=== PATIENT | female | born 1965 | race Caucasian/White ===

== ENCOUNTER 2017-06-22 06:28 | Day surgery (SDC) | payer BC, MEDICAID ==
[~2017-06-22 06:28] MED LIST: Lactated Ringers 1,000 ML IV SCH
[2017-06-22] MEDS ORDERED: fentaNYL 100 MCG/2 ML SDV ONE (07:48)
[2017-06-22] MEDS ORDERED: Propofol 200 MG/20 ML SDV ONE (07:49)
[2017-06-22 10:54] VITALS: BP 109/58
--- NOTE | 2017-06-22 12:06 | OR ---
PREOPERATIVEDIAGNOSIS: Screening colonoscopy. POSTOPERATIVE DIAGNOSIS: Normal colonoscopic exam. PROCEDURE PROPOSED/PROCEDURE DONE: Total flexible colonoscopy. INDICATION: This is a 52-year-old female, referred by her primary care physician for a screening colonoscopy. She denies any symptomatology. She denies any family history of colon polyps or colon cancer. TECHNIQUE: The patient was brought to the endoscopy suite, placed in left lateral decubitus position. She was sedated per GEOGRAPHIC INFORMATION SYSTEMS MANAGER with propofol. The flexible video colonoscope was then passed transanally and under visualization advanced to the cecum without difficulty. Thorough examination revealed a normal ascending, transverse, descending, sigmoid and rectal colon. There was no evidence of any diverticulosis, polyps, colitis or any other abnormalities and the scope was then withdrawn. The patient tolerated the procedure well. FINAL IMPRESSION: Normal colonoscopic exam. PLAN: The patient is reassured. I felt she could wait 10 years before she needs a repeat exam. SCM: 06/22/2017 08:05:57 MODL: 06/22/2017 11:51:24 /[id number]
== END 2017-06-22 09:06 | disposition home or self-care (01) ==
LOC: VM.SDS 06:28
PROVIDERS: ATTEND Surgery
DX: Z12.11 Encounter for screening for malignant neoplasm of colon (principal); I10 Essential (primary) hypertension; E11.9 Type 2 diabetes mellitus without complications; E55.9 Vitamin D deficiency, unspecified; E66.9 Obesity, unspecified; Z79.4 Long term (current) use of insulin; Z79.82 Long term (current) use of aspirin; Z79.899 Other long term (current) drug therapy; Z68.30 Body mass index [BMI] 30.0-30.9, adult; Z90.710 Acquired absence of both cervix and uterus; Z98.890 Other specified postprocedural states; Z87.891 Personal history of nicotine dependence
CPT/HCPCS: 45378; 82962; J2704; J3010; J7120

== ENCOUNTER 2019-09-29 06:53 | Emergency (ER) | payer MEDICAID ==
[2019-09-29] MEDS ORDERED: Sodium Chloride 0.9% 10 ML Syringe FLUSH PRN (07:20)
[2019-09-29] MEDS ORDERED: Morphine 4 MG/ML Syringe IVPUSH ONE (07:23)
[2019-09-29] MEDS ORDERED: Ondansetron 4 MG/2 ML SDV IVPUSH ONE (07:23)
[2019-09-29] MEDS ORDERED: Sodium Chloride 0.9% 1,000 ML IV ONE ×2 (07:23→09:14)
[2019-09-29 08:24] LABS: CHLORIDE,CL 86 mmol/L (98-107)
[2019-09-29] MEDS ORDERED: Ertapenem 1 GM Vial IVPUSH ONE (08:24)
[2019-09-29 08:28] LABS: ANION GAP 19.9 mmol/L (10-20); SODIUM,NA 125 mmol/L (136-145)
--- NOTE | 2019-09-29 08:38 | EDM.PDOC ---
ED HPI GENERAL MEDICAL PROBLEM - General Chief Complaint: General Stated Complaint: nausea, headache, abdominal pain Time Seen by Provider: 09/29/19 07:10 Source of Information: Reports: Patient, Family History Limitations: Reports: No Limitations - History of Present Illness INITIAL COMMENTS - FREE TEXT/NARRATIVE: Pt. presents to ER with complaints of R sided flank pain, upper abdominal pain, and RLQ abdominal pain. Pt. states that she has been experiencing this discomfort for about 4 days. She has been febrile at home as well, with a temp of greater than 102 F. Pt. is currently being treated for a UTI with Macrobid. She has a history of kidney stones in the past and feels as though the symptoms are similar. She states that the pain is constant. She denies any discoloration to her urine. Pt. has been nauseated and has been vomiting. Denies any diarrhea. No blood in her stools. Pt. denies any chest pain or shortness of breath. No jaw, arm, neck or back pain. She states that she feels quite weak. Pt. has a history of type 2 DM and is currently on lantus and novolog. Her diabetes is poorly controlled, with A1c previously at 11, now down to 8. She states that her blood sugars typically run in the 150-180 range. Pt. denies any excessive NSAID usage. Onset: Today Onset Date: 09/26/19 Location: Reports: Abdomen, Generalized Abdomen Pain Score (Numeric/FACES): 8 - Related Data Allergies Allergy/AdvReac Type Severity Reaction Status Date / Time No Known Allergies Allergy Verified 09/29/19 06:54 Home Meds: Home Meds Aspirin [Halfprin] 81 mg PO DAILY 06/20/17 [History] Betamethasone Dipropionate [Diprosone 0.05% Crm] 1 applic TOP BID PRN 06/20/17 [ History] Cholecalciferol (Vitamin D3) [Vitamin D3] 1,000 unit PO DAILY 06/20/17 [History] Fish Oil/[place]-3 Fatty Acids [Fish Oil 1,000 MG] 1,000 mg PO BID 06/20/17 [ History] Insulin Aspart [NovoLOG] 6 unit SQ ASDIRECTED 06/20/17 [History] Insulin Glargine,Hum.Rec.Anlog [Lantus Solostar] 55 unit SQ BID 06/20/17 [ History] Ketoconazole [Nizoral 2% Shampoo] 1 applic TOP ASDIRECTED PRN 06/20/17 [History] Ubidecarenone [Co Q-10] 1 tab PO DAILY 06/20/17 [History] Valsartan [Diovan] 1 tab PO DAILY 06/20/17 [History] Vitamin B Complex 1 tab PO DAILY 06/20/17 [History] atenoloL [Atenolol] 50 mg PO DAILY 06/20/17 [History] atorvaSTATin [Lipitor] 10 mg PO DAILY 06/20/17 [History] metFORMIN HCl [Metformin HCl] 1,000 mg PO BID 06/20/17 [History] Nitrofurantoin Macrocrystal [Nitrofurantoin] 100 mg PO BID 09/29/19 [History] Past Medical History HEENT History: Reports: None Cardiovascular History: Reports: High Cholesterol, Hypertension, Other (See Below) Other Cardiovascular History: PALPITATION Respiratory History: Reports: Sleep Apnea Gastrointestinal History: Reports: Other (See Below) Other Gastrointestinal History: ELEVATED LIVER ENZYMES. PELVIC MASS Genitourinary History: Reports: Other (See Below) Other Genitourinary History: NEPHROLITHIASIS Musculoskeletal History: Reports: None Neurological History: Reports: None Psychiatric History: Reports: None Endocrine/Metabolic History: Reports: Diabetes, Type II, Obesity/BMI 30+, Vitamin D Deficiency, Other (See Below) Other Endocrine/Metabolic History: THYROID NODULE Hematologic History: Reports: None Immunologic History: Reports: None Oncologic (Cancer) History: Reports: None Dermatologic History: Reports: Other (See Below) Other Dermatologic History: HIRSUTISM - Past Surgical History Head Surgeries/Procedures: Reports: None HEENT Surgical History: Reports: Oral Surgery Cardiovascular Surgical History: Reports: None Female Surgical History: Reports: Cystoscopy, Hysterectomy, Salpingo- Oophorectomy Endocrine Surgical History: Reports: None Neurological Surgical History: Reports: None Musculoskeletal Surgical History: Reports: None Oncologic Surgical History: Reports: None Social & Family History - Tobacco Use Smoking Status *Q: Never Smoker ED ROS GENERAL - Review of Systems Review Of Systems: See Below Constitutional: Reports: Fever, Chills, Fatigue HEENT: Reports: No Symptoms Respiratory: Reports: No Symptoms Cardiovascular: Reports: No Symptoms Endocrine: Reports: No Symptoms GI/Abdominal: Reports: Abdominal Pain, Nausea, Vomiting : Reports: No Symptoms Musculoskeletal: Reports: No Symptoms Skin: Reports: No Symptoms Neurological: Reports: No Symptoms Psychiatric: Reports: No Symptoms Hematologic/Lymphatic: Reports: No Symptoms Immunologic: Reports: No Symptoms ED EXAM, GENERAL - Physical Exam Exam: See Below Exam Limited By: No Limitations General Appearance: Alert, WD/WN, No Apparent Distress Nose: Normal Inspection, Normal Mucosa, No Blood Throat/Mouth: Normal Inspection, Normal Lips, Normal Teeth, Normal Gums, Normal Oropharynx, Normal Voice, No Airway Compromise Head: Atraumatic, Normocephalic Neck: Normal Inspection, Supple, Non-Tender, Full Range of Motion Respiratory/Chest: No Respiratory Distress, Lungs Clear, Normal Breath Sounds, No Accessory Muscle Use, Chest Non-Tender Cardiovascular: Normal Peripheral Pulses, Regular Rate, Rhythm, No Edema, No Murmur Peripheral Pulses: 4+: Radial (L) GI/Abdominal: Normal Bowel Sounds, Soft, Non-Tender, No Organomegaly, No Distention, No Mass (Female) Exam: Deferred Rectal (Female) Exam: Deferred Back Exam: Normal Inspection, Full Range of Motion Extremities: Normal Inspection, Normal Range of Motion, Non-Tender, No Pedal Edema, Normal Capillary Refill Neurological: Alert, Oriented, CN II-XII Intact, Normal Cognition, Normal Gait, Normal Reflexes, No Motor/Sensory Deficits Psychiatric: Normal Affect, Normal Mood Skin Exam: Warm, Dry, Intact, Normal Color, No Rash EKG INTERPRETATION Rhythm: NSR [place]: Normal P-Wave: Present QRS: Normal ST-T: Normal QT: Normal Course - Vital Signs Last Recorded V/S: Last Vital Signs Temp 37.0 C 09/29/19 08:40 Pulse 103 H 09/29/19 08:40 Resp 16 09/29/19 08:40 BP 108/63 09/29/19 08:40 Pulse Ox 92 L 09/29/19 08:40 - Orders/Labs/Meds Orders: Active Orders 24 hr Category Date Time Status EKG Documentation Completion [RC] STAT Care 09/29/19 07:22 Ordered Abdomen Pelvis wo Cont [CT] Stat Exams 09/29/19 08:33 Ordered CULTURE BLOOD [BC] Stat Lab 09/29/19 07:21 Ordered CULTURE BLOOD [BC] Stat Lab 09/29/19 07:21 Ordered CULTURE URINE [RM] Stat Lab 09/29/19 08:25 Ordered Ertapenem [INVanz] 0.5 gm Med 09/29/19 08:30 Ordered Sodium Chloride 0.9% [Normal Saline] 100 ml IV Q24H Sodium Chloride 0.9% [Normal Saline] 1,000 ml Med 09/29/19 09:14 Ordered IV .BOLUS Sodium Chloride 0.9% [Saline Flush] Med 09/29/19 07:20 Ordered 10 ml FLUSH ASDIRECTED PRN Blood Culture x2 Reflex Set [OM.PC] Stat Oth 09/29/19 07:21 Ordered Peripheral IV Insertion Adult [OM.PC] Routine Oth 09/29/19 07:20 Ordered Medication Orders Ertapenem 0.5 gm/ Sodium (Chloride) 100 mls @ 200 mls/hr IV Q24H JUAN ANTONIO Last Admin: 09/29/19 08:43 Dose: 200 mls/hr Sodium Chloride (Normal Saline) 1,000 mls @ 1,000 mls/hr IV .BOLUS ONE Stop: 09/29/19 10:13 Last Admin: 09/29/19 09:25 Dose: 1,000 mls/hr Sodium Chloride (Saline Flush) 10 ml FLUSH ASDIRECTED PRN PRN Reason: Keep Vein Open Labs: Laboratory Tests 09/29/19 09/29/19 09/29/19 Range/Units 07:40 07:40 07:40 WBC 24.7 H* (4.0-10.0) x10^3/uL RBC 3.75 L (4.00-5.50) x10^6/uL Hgb 11.6 L (12.0-16.0) g/dL Hct 34.4 (33.0-47.0) % MCV 91.7 (78.0-93.0) fL MCH 30.9 (26.0-32.0) pg MCHC 33.7 (32.0-36.0) g/dL RDW Coeff of Elizabeth 13.0 (10.0-15.0) % Plt Count 94 L (130-400) x10^3/uL Add Manual Diff Yes Neutrophils % (Manual) 65 (50-80) % Band Neutrophils % 18 H (0-6) % Lymphocytes % (Manual) 2 L (25-50) % Monocytes % (Manual) 1 L (2-11) % Metamyelocytes % 13 H (0) % Myelocytes % 1 H (0) % Vacuolated Monocytes 2+ moderate H Toxic Granulation 1+ slight H Platelet Estimate Decreased L Spherocytes 1+ slight H PT 12.1 (10.0-12.8) SEC INR 1.1 L (2.0-3.5) Sodium 125 L* (136-145) mmol/L Potassium 3.9 (3.5-5.1) mmol/L Chloride 86 L (98-107) mmol/L Carbon Dioxide 23 (21-32) mmol/L Anion Gap 19.9 (10-20) mmol/L BUN 48 H (7-18) mg/dL Creatinine 3.1 H* (0.55-1.02) mg/dL Est Cr Clr Drug Dosing TNP Estimated GFR (MDRD) 16 Glucose 464 H* (74-106) mg/dL Lactic Acid (0.4-2.0) mmol/L Calcium 9.2 (8.5-10.1) mg/dL Corrected Calcium 10.48 H (8.5-10.1) mg/dL Phosphorus 3.5 (2.6-4.7) mg/dL Magnesium 1.2 L (1.8-2.4) mg/dL Total Bilirubin 0.9 (0.2-1.0) mg/dL AST 22 (15-37) U/L ALT 27 (14-59) U/L Alkaline Phosphatase 77 (46-116) U/L Troponin I 0.043 (<=0.056) ng/mL C-Reactive Protein 42.5 H (<=0.9) mg/dL Total Protein 6.8 (6.4-8.2) g/dL Albumin 2.4 L (3.4-5.0) g/dL Globulin 4.4 Albumin/Globulin Ratio 0.55 Urine Color (YELLOW) Urine Appearance (CLEAR) Urine pH (5.0-8.0) Ur Specific [place] Urine Protein (NEGATIVE) mg/dL Urine Glucose (UA) (NEGATIVE) mg/dL Urine Ketones (NEGATIVE) mg/dL Urine Occult Blood (NEGATIVE) Urine Nitrite (NEGATIVE) Urine Bilirubin (NEGATIVE) Urine Urobilinogen (0.2) EU/dL Ur Leukocyte Esterase (NEGATIVE) Urine RBC (NOT SEEN) /HPF Urine WBC (NOT SEEN) /HPF Ur Squamous Epith Cells (NEGATIVE) /HPF Urine Bacteria (NEGATIVE) /HPF Hyaline Casts (NEGATIVE) /HPF Urine Mucus (NEGATIVE) /LPF Slides for Path Review Yes 09/29/19 09/29/19 Range/Units 07:40 08:12 WBC (4.0-10.0) x10^3/uL RBC (4.00-5.50) x10^6/uL Hgb (12.0-16.0) g/dL Hct (33.0-47.0) % MCV (78.0-93.0) fL MCH (26.0-32.0) pg MCHC (32.0-36.0) g/dL RDW Coeff of Elizabeth (10.0-15.0) % Plt Count (130-400) x10^3/uL Add Manual Diff Neutrophils % (Manual) (50-80) % Band Neutrophils % (0-6) % Lymphocytes % (Manual) (25-50) % Monocytes % (Manual) (2-11) % Metamyelocytes % (0) % Myelocytes % (0) % Vacuolated Monocytes Toxic Granulation Platelet Estimate Spherocytes PT (10.0-12.8) SEC INR (2.0-3.5) Sodium (136-145) mmol/L Potassium (3.5-5.1) mmol/L Chloride (98-107) mmol/L Carbon Dioxide (21-32) mmol/L Anion Gap (10-20) mmol/L BUN (7-18) mg/dL Creatinine (0.55-1.02) mg/dL Est Cr Clr Drug Dosing Estimated GFR (MDRD) Glucose (74-106) mg/dL Lactic Acid 3.6 H* (0.4-2.0) mmol/L Calcium (8.5-10.1) mg/dL Corrected Calcium (8.5-10.1) mg/dL Phosphorus (2.6-4.7) mg/dL Magnesium (1.8-2.4) mg/dL Total Bilirubin (0.2-1.0) mg/dL AST (15-37) U/L ALT (14-59) U/L Alkaline Phosphatase (46-116) U/L Troponin I (<=0.056) ng/mL C-Reactive Protein (<=0.9) mg/dL Total Protein (6.4-8.2) g/dL Albumin (3.4-5.0) g/dL Globulin Albumin/Globulin Ratio Urine Color Yellow (YELLOW) Urine Appearance Cloudy H (CLEAR) Urine pH 5.5 (5.0-8.0) Ur Specific [place] 1.025 Urine Protein 100 H (NEGATIVE) mg/dL Urine Glucose (UA) 250 H (NEGATIVE) mg/dL Urine Ketones Negative (NEGATIVE) mg/dL Urine Occult Blood Moderate H (NEGATIVE) Urine Nitrite Negative (NEGATIVE) Urine Bilirubin Small H (NEGATIVE) Urine Urobilinogen 0.2 (0.2) EU/dL Ur Leukocyte Esterase Moderate H (NEGATIVE) Urine RBC 5-10 H (NOT SEEN) /HPF Urine WBC 5-10 H (NOT SEEN) /HPF Ur Squamous Epith Cells Many H (NEGATIVE) /HPF Urine Bacteria Moderate H (NEGATIVE) /HPF Hyaline Casts Rare H (NEGATIVE) /HPF Urine Mucus Rare H (NEGATIVE) /LPF Slides for Path Review Meds: Medications Generic Name Dose Route Start Last Admin Trade Name Freq PRN Reason Stop Dose Admin Ertapenem 0.5 gm/ Sodium 100 mls @ 200 mls/hr 09/29/19 08:30 09/29/19 08:43 Chloride IV 200 mls/hr Q24H JUAN ANTONIO Administration Sodium Chloride 1,000 mls @ 1,000 mls/hr 09/29/19 09:14 09/29/19 09:25 Normal Saline IV 09/29/19 10:13 1,000 mls/hr .BOLUS ONE Administration Sodium Chloride 10 ml 09/29/19 07:20 Saline Flush FLUSH ASDIRECTED PRN Keep Vein Open Discontinued Medications Generic Name Dose Route Start Last Admin Trade Name Freq PRN Reason Stop Dose Admin Ertapenem 1 gm 09/29/19 08:24 09/29/19 08:31 Invanz IVPUSH 09/29/19 08:25 Not Given STAT ONE Sodium Chloride 1,000 mls @ 1,000 mls/hr 09/29/19 07:23 09/29/19 08:03 Normal Saline IV 09/29/19 08:22 1,000 mls/hr .BOLUS ONE Administration Insulin Human Regular 10 unit 09/29/19 09:08 09/29/19 09:25 Humulin R IVPUSH 09/29/19 09:09 10 unit ONETIME ONE Administration Morphine Sulfate 4 mg 09/29/19 07:23 09/29/19 08:06 Morphine IVPUSH 09/29/19 07:24 4 mg ONETIME ONE Administration Ondansetron HCl 4 mg 09/29/19 07:23 09/29/19 08:04 Zofran IVPUSH 09/29/19 07:24 4 mg ONETIME ONE Administration Departure - Departure Time of Disposition: 09:48 Disposition: DC/Tfer to [facility] 02 Clinical Impression: Pyelonephritis, Kidney stone, ALEX (acute kidney injury), Hyponatremia - Discharge Information Referrals: Dee Kirby FISH HATCHERY SUPERINTENDENT [Primary Care Provider] - Forms: ED Department Discharge Sepsis Event Note - Evaluation Sepsis Screening Result: No Definite Risk - Focused Exam Vital Signs: Vital Signs Temp Pulse Resp BP Pulse Ox 09/29/19 08:40 37.0 C 103 H 16 108/63 92 L 09/29/19 06:54 36.4 C 103 H 18 99/54 L 96 Date Exam was Performed: 09/29/19 Time Exam was Performed: 09:37 - Problem List Review Problem List Initiated/Reviewed/Updated: Yes - My Orders Last 24 Hours: My Active Orders 09/29/19 07:20 Sodium Chloride 0.9% [Saline Flush] 10 ml FLUSH ASDIRECTED PRN Peripheral IV Insertion Adult [OM.PC] Routine 09/29/19 07:21 CULTURE BLOOD [BC] Stat CULTURE BLOOD [BC] Stat Blood Culture x2 Reflex Set [OM.PC] Stat 09/29/19 07:22 EKG Documentation Completion [RC] STAT 09/29/19 08:25 CULTURE URINE [RM] Stat 09/29/19 08:30 Ertapenem [INVanz] 0.5 gm Sodium Chloride 0.9% [Normal Saline] 100 ml IV Q24H 09/29/19 08:33 Abdomen Pelvis wo Cont [CT] Stat 09/29/19 09:14 Sodium Chloride 0.9% [Normal Saline] 1,000 ml IV .BOLUS - Assessment/Plan Last 24 Hours: My Active Orders 09/29/19 07:20 Sodium Chloride 0.9% [Saline Flush] 10 ml FLUSH ASDIRECTED PRN Peripheral IV Insertion Adult [OM.PC] Routine 09/29/19 07:21 CULTURE BLOOD [BC] Stat CULTURE BLOOD [BC] Stat Blood Culture x2 Reflex Set [OM.PC] Stat 09/29/19 07:22 EKG Documentation Completion [RC] STAT 09/29/19 08:25 CULTURE URINE [RM] Stat 09/29/19 08:30 Ertapenem [INVanz] 0.5 gm Sodium Chloride 0.9% [Normal Saline] 100 ml IV Q24H 09/29/19 08:33 Abdomen Pelvis wo Cont [CT] Stat 09/29/19 09:14 Sodium Chloride 0.9% [Normal Saline] 1,000 ml IV .BOLUS Plan: Pt. will be transferred to [facility] in [place]. Awaiting bed availability. Pt. has received a total of 1.5 L of NS at this point. She was given Invanz 0.5gm IV and started on Vancomycin 1.25mg IV. Pain is controlled with IV morphine. Pt. will be transported via [facility] ground ambulance.
[2019-09-29] MEDS ORDERED: Insulin Regular, Human 100 Units/ML 3 ML Vial IVPUSH ONE (09:08)
--- NOTE | 2019-09-29 09:46 | CT ---
[id number] CT/CT Abdomen Pelvis WO IV Exam: CT Abdomen Pelvis WO IV Clinical Data: RIGHT-SIDED ABDOMINAL AND PELVIC PAIN ELEVATED WHITE BLOOD CELL COUNT HISTORY OF KIDNEY STONES DECREASED RENAL FUNCTION COMPARISON: CORRELATION IS MADE WITH THE CAT SCAN OF NOVEMBER 29, 2013 FINDINGS: There is a 9 mm radiopaque calculus in the proximal right ureter on image 106, series 2 There is moderate right-sided hydronephrosis There is air in the collecting system of the right kidney and right ureter There is edema surrounding the right kidney There are other calculi of the right kidney The remainder of the exam is overall unremarkable There are limitations of the study without IV contrast An anterior abdominal wall defect is seen containing mesenteric fat The uterus is not seen Report was called at time of the exam IMPRESSION: RIGHT SIDE 9 MM URETERAL CALCULUS RIGHT-SIDED PYONEPHROSIS RIGHT SIDE NEPHROLITHIASIS Topher Denise MD 09/29/19 0934 Thank you for allowing us to participate in the care of your patient.
[2019-09-29 11:39] VITALS: BP 101/64; PULSE 101
== END 2019-09-29 11:47 | disposition short-term general hospital (02) ==
LOC: VM.ED 06:53
DX: N13.6 Pyonephrosis (principal); N17.9 Acute kidney failure, unspecified; E87.1 Hypo-osmolality and hyponatremia; I10 Essential (primary) hypertension; E78.00 Pure hypercholesterolemia, unspecified; E11.9 Type 2 diabetes mellitus without complications; E66.9 Obesity, unspecified; Z79.4 Long term (current) use of insulin; Z79.899 Other long term (current) drug therapy; Z79.82 Long term (current) use of aspirin
CPT/HCPCS: 36415; 74176; 80053; 81001; 82962; 83605; 83735; 84100; 84484; 85025; 85610; 86140; 87040; 87077; 87086; 87186; 93005; 96361; 96365; 96367; 96375; 99285; J1335; J1815; J2270; J2405; J3370; J7030; J7050

== ENCOUNTER 2020-07-04 11:50 | Inpatient (IN) | payer OTHER ==
[2020-07-04] MEDS ORDERED: cefTRIAXone 2 GM Vial IVPUSH ONE (11:54)
--- NOTE | 2020-07-04 12:06 | PCM.HP.2 ---
H&P History of Present Illness - General Date of Service: 07/04/20 Admit Problem/Dx: Admission Diagnosis/Problem Admission Diagnosis/Problem Pyelonephritis Source of Information: Patient History Limitations: Reports: No Limitations - History of Present Illness Initial Comments - Free Text/Narative: Ms. Adam is a 55 yo female with PMH of nephrolithiasis resulting in hannah lonephritis and sepsis in 2019, HTN, diabetes, obesity, HLD, vitamin D deficiency, thyroid nodule, and celiac disease who presented for evaluation of 24 hours of right flank pain. Pain started while she was resting at home talking to her sister; no preceding injury or trauma. Described as sharp, shooting pain. Pain radiated into the right lower abdomen. Symptoms felt very similar to a kidney stone. She took a shower and had improvement in symptoms. Overnight, feels she passed the stone as she saw a brown-black shad in the toilet after voiding and has had some dysuria since then. Has also had a fever with Tmax 101. Flank pain has significantly improved since passing the material in the urine. She still has generalized fatigue and malaise. She is also having nausea and vomiting. She has been taking acetaminophen without much help in symptoms. Symptoms feel similar to about a year ago when she had a kidney stone that resulted in pyelonephritis and sepsis. She was admitted to [place] at that time. She otherwise denies any URI symptoms, cough, diarrhea, or changes in taste or smell. No exposures to COVID. She has weekly testing for work and has had negative results. - Related Data Allergies/Adverse Reactions: Allergies Allergy/AdvReac Type Severity Reaction Status Date / Time ciprofloxacin Allergy Rash Verified 07/04/20 12:23 gluten Allergy Diarrhea Verified 07/04/20 12:23 Home Medications: Home Meds Aspirin [Halfprin] 81 mg PO DAILY 06/20/17 [History] Cholecalciferol (Vitamin D3) [Vitamin D3] 2,000 unit PO DAILY 06/20/17 [History] Fish Oil/[place]-3 Fatty Acids [Fish Oil 1,000 MG] 1,000 mg PO BID 06/20/17 [History] Insulin Aspart [NovoLOG] 6 unit SQ TIDMEALS 06/20/17 [History] Insulin Glargine,Hum.Rec.Anlog [Lantus Solostar] 55 unit SQ BID 06/20/17 [History] Ketoconazole [Nizoral 2% Shampoo] 1 applic TOP DAILY 06/20/17 [History] Ubidecarenone [Co Q-10] 1 tab PO DAILY 06/20/17 [History] Vitamin B Complex 1 tab PO DAILY 06/20/17 [History] atenoloL [Atenolol] 50 mg PO DAILY 06/20/17 [History] metFORMIN HCl [Metformin HCl] 1,000 mg PO BIDMEALS 06/20/17 [History] Rosuvastatin [Crestor] 5 mg PO BEDTIME 09/29/19 [History] Semaglutide [Ozempic] 1 mg SQ VINCENT 09/29/19 [History] Acetaminophen 650 mg PO Q4HR PRN 07/04/20 [History] Ergocalciferol (Vitamin D2) [Vitamin D2] 50,000 unit PO MO 07/04/20 [History] Lactobacillus Combination No.4 [Probiotic] 1 each PO DAILY 07/04/20 [History] Triamcinolone Acetonide [Triamcinolone Acetonide 0.5%] 1 applic TOP TID PRN 07/04/20 [History] Valsartan/Hydrochlorothiazide [Valsartan-Hctz 80-12.5 mg Tab] 1 tab PO DAILY 07/04/20 [History] Past Medical History HEENT History: Reports: None Cardiovascular History: Reports: High Cholesterol, Hypertension, Other (See Below) Other Cardiovascular History: PALPITATION Respiratory History: Reports: None Gastrointestinal History: Reports: Celiac Disease, Other (See Below) Other Gastrointestinal History: ELEVATED LIVER ENZYMES. PELVIC MASS Genitourinary History: Reports: Other (See Below) Other Genitourinary History: NEPHROLITHIASIS Musculoskeletal History: Reports: None Neurological History: Reports: None Psychiatric History: Reports: None Endocrine/Metabolic History: Reports: Diabetes, Type II, Obesity/BMI 30+, Vitamin D Deficiency, Other (See Below) Other Endocrine/Metabolic History: THYROID NODULE Hematologic History: Reports: None Immunologic History: Reports: None Oncologic (Cancer) History: Reports: None Dermatologic History: Reports: Other (See Below) Other Dermatologic History: HIRSUTISM - Past Surgical History Head Surgeries/Procedures: Reports: None HEENT Surgical History: Reports: Oral Surgery Cardiovascular Surgical History: Reports: None GI Surgical History: Reports: Colonoscopy Female Surgical History: Reports: Cystoscopy, Hysterectomy, Salpingo- Oophorectomy Endocrine Surgical History: Reports: None Neurological Surgical History: Reports: None Musculoskeletal Surgical History: Reports: None Oncologic Surgical History: Reports: None Social & Family History - Family History Cardiac: Reports: CAD, High Cholesterol, Hypertension Oncologic: Reports: Breast, Colon - Tobacco Use Smoking Status *Q: Former Smoker - Alcohol Use Alcohol Use History: No - Recreational Drug Use Recreational Drug Use: No - Living Situation & Occupation Living situation: Reports: Single (but engaged), with Family (with her mother for whom she is the primary caregiver) Occupation: Employed ([employer]) H&P Review of Systems - Review of Systems: Review Of Systems: See Below General: Reports: Fever, Chills, Weakness, Fatigue HEENT: Reports: No Symptoms Pulmonary: Reports: No Symptoms Cardiovascular: Reports: No Symptoms Gastrointestinal: Reports: Abdominal Pain, Nausea, Vomiting. Denies: Diarrhea Genitourinary: Reports: Dysuria, Flank Pain Musculoskeletal: Reports: No Symptoms Skin: Reports: No Symptoms Psychiatric: Reports: No Symptoms Neurological: Reports: No Symptoms Exam - Exam Exam: See Below - Exam General: Alert, Oriented, Cooperative HEENT: Conjunctiva Clear, Mucosa Moist & [place], Posterior Pharynx Clear, Pupils Equal, Pupils Reactive Neck: Supple, Trachea Midline. No: Lymphadenopathy, Thyromegaly Lungs: Clear to Auscultation, Normal Respiratory Effort Cardiovascular: Regular Rate, Regular Rhythm, Normal S1, Normal S2 GI/Abdominal Exam: Normal Bowel Sounds, Soft, No Distention Back Exam: No: CVA Tenderness (L), CVA Tenderness (R) Peripheral Pulses: 2+: Radial (L), Radial (R) Skin: Warm, Dry, Intact Neuro Extensive - Mental Status: Alert, Oriented x3, Normal Cognition - Problem List (1) Sepsis SNOMED Code(s): 61235176 ICD Code: A41.9 - SEPSIS, UNSPECIFIED ORGANISM Status: Acute Current Visit: No Qualifiers: Sepsis type: sepsis due to unspecified organism Sepsis acute organ dysfunction status: without acute organ dysfunction Qualified Code(s): A41.9 - Sepsis, unspecified organism (2) Pyelonephritis SNOMED Code(s): 06610889 ICD Code: N12 - TUBULO-INTERSTITIAL NEPHRITIS, NOT SPCF ACUTE OR CHRONIC Status: Acute Current Visit: No (3) Nephrolithiasis SNOMED Code(s): 06622241 ICD Code: N20.0 - CALCULUS OF KIDNEY Status: Acute Current Visit: No (4) Chronic kidney disease (CKD) SNOMED Code(s): 475954234 ICD Code: N18.9 - CHRONIC KIDNEY DISEASE, UNSPECIFIED Status: Chronic Current Visit: No Qualifiers: Chronic kidney disease stage: stage 3 (moderate) Chronic kidney disease stage 3 subtype: stage 3a (GFR 45-59) Qualified Code(s): N18.31 - Chronic kidney disease, stage 3a (5) Hypertension SNOMED Code(s): 27426242 ICD Code: I10 - ESSENTIAL (PRIMARY) HYPERTENSION Status: Chronic Current Visit: No Qualifiers: Hypertension type: essential hypertension Qualified Code(s): I10 - Essent ial (primary) hypertension (6) Diabetes SNOMED Code(s): 59083484 ICD Code: E11.9 - TYPE 2 DIABETES MELLITUS WITHOUT COMPLICATIONS Status: Chronic Current Visit: No Qualifiers: Diabetes mellitus type: type 2 Diabetes mellitus long wall mining machine helper insulin use: with penitentiary use Diabetes mellitus complication status: with kidney complications Diabetes mellitus complication detail: with chronic kidney disease Chronic kidney disease stage: stage 3 (moderate) Chronic kidney disease stage 3 subtype: stage 3a (GFR 45-59) Qualified Code(s): E11.21 - Type 2 diabetes mellitus with diabetic nephropathy; N18.31 - Chronic kidney disease, stage 3a; Z79.4 - terminal block assembler (current) use of insulin (7) Hyperlipidemia SNOMED Code(s): 17563682 ICD Code: E78.5 - HYPERLIPIDEMIA, UNSPECIFIED Status: Chronic Current Visit: No Qualifiers: Hyperlipidemia type: unspecified Qualified Code(s): E78.5 - Hyperlipidemia, unspecified (8) Obesity SNOMED Code(s): 055302682, 539354327 ICD Code: E66.9 - OBESITY, UNSPECIFIED Status: Chronic Current Visit: No Qualifiers: Obesity type: due to excess calories Obesity classification: adult class 1 (BMI 30 - 34.9) Serious obesity comorbidity presence: with serious comorbidity Body mass index: BMI 33.0-33.9 Qualified Code(s): E66.09 - Other obesity due to excess calories; Z68.33 - Body mass index [BMI] 33.0-33.9, adult (9) Vitamin D deficiency SNOMED Code(s): 53547071 ICD Code: E55.9 - VITAMIN D DEFICIENCY, UNSPECIFIED Status: Chronic Current Visit: No (10) Celiac disease SNOMED Code(s): 723889847 ICD Code: K90.0 - CELIAC DISEASE Status: Chronic Current Visit: No Problem List Initiated/Reviewed/Updated: Yes Orders Last 24hrs: Active Orders 24 hr Category Date Time Status Admission Status [Patient Status] [ADT] Routine ADT 07/04/20 11:51 Active Dietary Supplements [RC] BIDMEALS Care 07/04/20 11:54 Ordered cefTRIAXone [Rocephin] Med 07/04/20 11:54 Once 2 gm IVPUSH STAT ONE Medication Orders Ceftriaxone Sodium (Rocephin) 2 gm IVPUSH STAT ONE Stop: 07/04/20 11:55 Assessment/Plan Comment:: 55 yo female admitted with sepsis secondary to pyelonephritis and nephrolithiasis. #1 Sepsis, secondary to #2 - No s/s for other infectious source. - U/A done in clinic significantly positive. - Will draw blood cultures upon admission. - Urine culture pending in clinic. - Will give maintenance rate IV fluids overnight and likely be able to discontinue these tomorrow. - Antibiotics as below. #2 Pyelonephritis #3 Nephrolithiasis - Kidney stone diagnosed clinically by patient history. - Presumed to have passed the kidney stone given dramatic improvement in flank pain. - Therefore, will hold off on CT scan for now. - If symptoms are not improving, she has new onset flank pain, or labs are not improving, then she will need to have a CT scan. - Ceftriaxone 2 g daily until culture results are available. #4 CKD - Baseline creatinine is 1.2. Creatinine today up to 1.4 so mildly elevated but not enough to call ALEX. - Will do gentle IV fluids overnight and recheck labs in the am. #5 HTN #6 DM #7 HLD #8 Obesity #9 Vitamin D deficiency - Continue home medications with the exception of metformin (held per protocols), ozempic (not expected to be due during hospitalization), and vitamins/supplements. - Glucose checks QIDACHS. #10 Celiac disease - Gluten free diet ordered. Patient is admitted to acute and will remain admitted until final culture/susceptibility report available. Patient will be signed out to the tool and production planner provider to cover for the weekend. VTE prophylaxis with lovenox. Code status is full - discussed with patient on admission.
[2020-07-04] MEDS ORDERED: Calcium Carbonate 750 MG Tab.Chew PO ONE (12:29)
[2020-07-04] MEDS ORDERED: Lactated Ringers 1,000 ML IV SCH (13:15)
[2020-07-04] MEDS: Sodium Chloride 0.9% 1,000 ML IV SCH ×2 (13:50→20:29)
[2020-07-04] MEDS: Ondansetron 4 MG/2 ML SDV IVPUSH PRN (16:20)
[2020-07-04] MEDS: Acetaminophen 325 MG Tab PO PRN (18:09)
[2020-07-04] MEDS: Insulin Lispro 100 Units/ML 3 ML Vial SUBCUT SCH ×2 (18:10)
[2020-07-04 19:23] LABS: ANION GAP 14.5 mmol/L (10-20)
[2020-07-04] MEDS: Insulin Glarg,Human.Rec.Analog 100 Unit/ML SUBCUT SCH (20:22)
[2020-07-04] MEDS: atorvaSTATin 10 MG Tab PO SCH (20:22)
[2020-07-05] MEDS: Sodium Chloride 0.9% 1,000 ML IV SCH ×4 (03:17→20:31)
[2020-07-05] MEDS: Acetaminophen 325 MG Tab PO PRN ×3 (03:20→18:14)
[2020-07-05] MEDS ORDERED: Losartan 50 MG Tab PO SCH (08:00)
[2020-07-05] MEDS ORDERED: cefTRIAXone 2 GM Vial IVPUSH SCH (08:00)
[2020-07-05] MEDS ORDERED: VALSARTAN HCTZ PO SCH (08:00)
[2020-07-05 08:10] LABS: ANION GAP 10.1 mmol/L (10-20)
[2020-07-05] MEDS: Enoxaparin 40 MG/0.4 ML Syringe SUBCUT SCH (09:15)
[2020-07-05] MEDS: Hydrochlorothiazide 12.5 MG Cap PO SCH (09:15)
[2020-07-05] MEDS: Aspirin 81 MG Tab.EC PO SCH (09:15)
[2020-07-05] MEDS: Atenolol 50 MG Tab PO SCH (09:16)
[2020-07-05] MEDS: Insulin Lispro 100 Units/ML 3 ML Vial SUBCUT SCH ×6 (09:18→18:15)
--- NOTE | 2020-07-05 09:18 | PN ---
Progress Note for RAMÓN TIMMONS Date: 07/05/2020 Room #: VM.212 SUBJECTIVE: The patient is seen for her 2nd hospital day, being admitted with pyelonephritis with nephrolithiasis. She was quite ill, feeling last evening with nausea, fever, and right-sided flank pain, which she did pass something in the toilet at home prior to presenting. She did become more hypotensive last night, however, her blood pressure has improved this morning. Her appetite is starting to come back. She had been nauseated, fair amount yesterday and had thrown up, but now is not. OBJECTIVE: Vital Signs: Her temperature is 37.4, her pulse is 109, blood pressure is up to 106/61, respiratory rate 17, and saturations are 95%. General: The patient is slightly flushed in appearance. HEENT: Mucous membranes are moist. Heart: Regular rate and rhythm. Lungs: Clear to auscultation. No CVA tenderness noted. Abdomen: Soft and nontender. LABORATORY DATA: Her lab work shows that her white blood cell count is improved to 16.3 from 23.5 last evening. Hemoglobin was dropped to 10.5 from 11.4, platelets are 129 with 92 segs, 3.7 lymphocytes. Sodium is 133, potassium 4.1 creatinine is 1.7, BUN is 31, GFR is 31, glucose is 166 with max 213. Her lactic acid was 1.9 on admission, did go up to 3.4 and is back to 1.3. LFTs were normal yesterday. CRP was 7.2 yesterday up to 26.4 today. Urinalysis had been done at the clinic. Blood cultures have not grown anything. IMPRESSION: 1. Sepsis, suspect pyelonephritis. 2. Nephrolithiasis. 3. Chronic kidney disease. 4. Hypertension. 5. Type 2 diabetes mellitus. 6. Obesity. 7. Vitamin D deficiency. PLAN: Today, we will reduce her IV fluid rate. We will continue her Rocephin. We will check a CT scan of her abdomen for documentation of renal system as well as for stones. Her activity, she can be up and ambulate. She does have Zofran listed and right now we will probably hold her losartan until her renal function has gotten more improved. GM07/05/2020 08:47:07 MODL: 07/05/2020 09:11:42 /[id number] Addenedum: after rounds her temperature spiked to 103. Spoke with pharmacist and will stop rocpehin and instead use meropenum 1 gm q 8 hr. Her blood cultures were growing 1/4 for Gram Neg Coccibacilli. CT showed some stranding around kidney, renal stones, but no obstructing stones, cholelithiasis, ventral wall hernia and bilateral inguinal hernias. urine culture done at [facility] has no information back yet. JEFF
[2020-07-05] MEDS: Insulin Glarg,Human.Rec.Analog 100 Unit/ML SUBCUT SCH ×2 (09:22→20:35)
[2020-07-05] MEDS ORDERED: Meropenem 1 GM in Sodium Chloride 0.9% 100 ML IV SCH (10:30)
--- NOTE | 2020-07-05 10:37 | CT ---
[id number] CT/CT Abdomen Pelvis WO IV EXAM: ABDOMEN AND PELVIS CT WITHOUT CONTRAST INDICATION: Renal calculi. Pyelonephritis. COMPARISON: September 29, 2019. DISCUSSION: On the right there is been interval passage or removal of a ureteral calculus. On the right side there is mild perinephric stranding and periureteral stranding that could relate to a urinary tract infection or recent stone passage. No hydronephrosis or residual ureteral calculus is seen. There are small nonobstructing calculi in the lower pole of the right kidney measuring up to about 2.5 mm and there is a single small nonobstructing calculus in the lower pole of the left kidney. Small hypodensity in the upper pole the right kidney likely representing cyst, but too small to further characterize. Cholelithiasis without CT evidence of acute cholecystitis. Trace right pleural effusion. Mild splenomegaly. Scattered diverticula of the colon without evidence of diverticulitis. Midline abdominal wall hernia above the umbilicus with a 39 mm ostium. Small fat-containing bilateral inguinal hernias. Hysterectomy. Unenhanced images of the liver, pancreas, adrenal glands, small bowel and the appendix are unremarkable. No adenopathy, free air free fluid. The osseous structures are unremarkable. IMPRESSION: 1. Mild perinephric and periureteral stranding on the right could relate to underlying urinary tract infection. No ureteral calculus or hydronephrosis on either side. 2. Tiny nonobstructing bilateral intrarenal calculi. Jaswinder Graves MD 07/05/20 1036 Thank you for allowing us to participate in the care of your patient.
[2020-07-05] MEDS: Meropenem 500 MG in Sodium Chloride 0.9% 100 ML IV SCH ×2 (11:23→18:14)
[2020-07-05] MEDS: Ondansetron 4 MG/2 ML SDV IVPUSH PRN (18:16)
[2020-07-05] MEDS: atorvaSTATin 10 MG Tab PO SCH (20:31)
[2020-07-06] MEDS: Meropenem 500 MG in Sodium Chloride 0.9% 100 ML IV SCH ×2 (03:22→12:16)
[2020-07-06 08:11] LABS: ANION GAP 7.8 mmol/L (10-20)
[2020-07-06] MEDS: Enoxaparin 40 MG/0.4 ML Syringe SUBCUT SCH (08:55)
--- NOTE | 2020-07-06 09:08 | PN ---
Progress Note for RAMÓN TIMMONS Date: 07/06/2020 Room #: VM.212 SUBJECTIVE: This is patient's 3rd hospital day. Yesterday, her fever had gone up to 103, so we had stopped Rocephin as an antibiotic and switched her to meropenem. She did have another fever around 101 last evening. We did hold her losartan because of concerns with hypotension as well as elevated renal function. The patient is on Lovenox for DVT prophylaxis. She does not have any history of ulcers. She is still a little bit nauseated, but appetite is better than what it was when she came in. She denies any back pain. She is just wondering why she ended up getting this again. She may not drink as much fluids as she should. OBJECTIVE: Vital Signs: Her temperature this morning is 37.4, pulse is 93, blood pressure is 111/58, respiratory rate is 17, saturations are 91% on room air. Skin: [place], warm, and dry. Heart: Regular rate and rhythm without murmurs or bruits. Lungs: Clear to auscultation. Abdomen: Soft. Extremities: Lower extremities, no edema. LABORATORY DATA: Her lab today shows her hemoglobin has dropped to 9.5, white blood cell count is 8.5, with platelets 122. Sodium is 133, potassium is 3.8, creatinine is improved to 1.5, BUN is improved to 25, GFR is 36, blood sugar is 151, calcium is 8.1. CRP is 93.8. Blood cultures are still showing Gram-negative coccobacilli. Urine cultures from [place] is growing E. coli greater than 10 to the 6, but no sensitivities are back yet. Her CT of her abdomen did show some stranding around her right kidney, still showed stones in her renal pelvis. No obstructing stones. No hydroureter. She did have cholelithiasis. She did have an abdominal wall hernia as well as inguinal hernias as well as mild splenomegaly. Report was shared with the patient. IMPRESSION: 1. Sepsis, improving. 2. Acute pyelonephritis. 3. Acute kidney injury, improving. 4. Anemia, multifactorial. 5. Hypotension, improving. 6. Type 2 diabetes mellitus. PLAN: We will stop her Lovenox right now. We will use compression hosiery and encourage ambulation. We will prophylactically start omeprazole or the PPI to help her stomach, for it to prevent stress ulcers. We will stop her IV fluids right now and just have a saline lock. She will work on ambulation today and we will repeat blood work tomorrow, and depending on how she does would most likely be switched to oral antibiotics tomorrow. We will let Dr. Allyson Mendosa decide. GM07/06/2020 08:30:24 MODL: 07/06/2020 09:01:10 /[id number]
[2020-07-06] MEDS: Pantoprazole 40 MG Tab.CR PO SCH (09:12)
[2020-07-06] MEDS: Acetaminophen 325 MG Tab PO PRN ×2 (09:12→20:19)
[2020-07-06] MEDS: Hydrochlorothiazide 12.5 MG Cap PO SCH (09:12)
[2020-07-06] MEDS: Aspirin 81 MG Tab.EC PO SCH (09:12)
[2020-07-06] MEDS: Atenolol 50 MG Tab PO SCH (09:12)
[2020-07-06] MEDS: Insulin Glarg,Human.Rec.Analog 100 Unit/ML SUBCUT SCH ×2 (09:13→21:18)
[2020-07-06] MEDS: Insulin Lispro 100 Units/ML 3 ML Vial SUBCUT SCH ×6 (09:14→18:24)
[2020-07-06] MEDS: Meropenem 1 GM in Sodium Chloride 0.9% 100 ML IV SCH ×2 (11:42→20:21)
[2020-07-06] MEDS: atorvaSTATin 10 MG Tab PO SCH (20:19)
[2020-07-07] MEDS: Meropenem 1 GM in Sodium Chloride 0.9% 100 ML IV SCH (03:46)
[2020-07-07] MEDS: Pantoprazole 40 MG Tab.CR PO SCH (06:14)
[2020-07-07 07:15] LABS: ANION GAP 8.1 mmol/L (10-20)
[2020-07-07] MEDS: Aspirin 81 MG Tab.EC PO SCH (07:59)
[2020-07-07] MEDS: Hydrochlorothiazide 12.5 MG Cap PO SCH (07:59)
[2020-07-07] MEDS: Atenolol 50 MG Tab PO SCH (08:00)
[2020-07-07] MEDS: Insulin Lispro 100 Units/ML 3 ML Vial SUBCUT SCH ×2 (08:03→08:06)
[2020-07-07] MEDS: Insulin Glarg,Human.Rec.Analog 100 Unit/ML SUBCUT SCH (08:04)
[2020-07-07 08:05] VITALS: BP 126/73; PULSE 81
--- NOTE | 2020-07-07 08:51 | PCM.DCSUM1 ---
Discharge Summary - Hospital Course Brief History: Ms. Adam is a 55 yo female who was admitted for sepsis secondary to pyelonephritis after presenting for evaluation of fevers and right flank pain. - Discharge Data Discharge Date: 07/07/20 Discharge Disposition: Home, Self-Care 01 Condition: Good - Referral to Home Health Primary Care Physician: Allyson Mendosa MD - Discharge Diagnosis/Problem(s) (1) Sepsis SNOMED Code(s): 19290855 ICD Code: A41.9 - SEPSIS, UNSPECIFIED ORGANISM Status: Acute Current Visit: Yes Qualifiers: Sepsis type: sepsis due to unspecified organism Sepsis acute organ dysf unction status: without acute organ dysfunction Qualified Code(s): A41.9 - Sepsis, unspecified organism (2) Bacteremia SNOMED Code(s): 1762433 ICD Code: R78.81 - BACTEREMIA Status: Acute Current Visit: Yes (3) Pyelonephritis SNOMED Code(s): 41944487 ICD Code: N12 - TUBULO-INTERSTITIAL NEPHRITIS, NOT SPCF ACUTE OR CHRONIC Status: Acute Current Visit: Yes (4) Nephrolithiasis SNOMED Code(s): 64940386 ICD Code: N20.0 - CALCULUS OF KIDNEY Status: Acute Current Visit: No (5) Chronic kidney disease (CKD) SNOMED Code(s): 777625286 ICD Code: N18.9 - CHRONIC KIDNEY DISEASE, UNSPECIFIED Status: Chronic Current Visit: Yes Qualifiers: Chronic kidney disease stage: stage 3 (moderate) Chronic kidney disease stage 3 subtype: stage 3a (GFR 45-59) Qualified Code(s): N18.31 - Chronic kidney disease, stage 3a (6) Hypertension SNOMED Code(s): 64682704 ICD Code: I10 - ESSENTIAL (PRIMARY) HYPERTENSION Status: Chronic Current Visit: Yes Qualifiers: Hypertension type: essential hypertension Qualified Code(s): I10 - Essential (primary) hypertension (7) Diabetes SNOMED Code(s): 21798354 ICD Code: E11.9 - TYPE 2 DIABETES MELLITUS WITHOUT COMPLICATIONS Status: Chronic Current Visit: Yes Qualifiers: Diabetes mellitus type: type 2 Diabetes mellitus long-term insulin use: with long-term use Diabetes mellitus complication status: with kidney complications Diabetes mellitus complication detail: with chronic kidney disease Chronic kidney disease stage: stage 3 (moderate) Chronic kidney disease stage 3 subtype: stage 3a (GFR 45-59) Qualified Code(s): E11.21 - Type 2 diabetes mellitus with diabetic nephropathy; N18.31 - Chronic kidney disease, stage 3a; Z79.4 - senior care (current) use of insulin (8) Hyperlipidemia SNOMED Code(s): 09241716 ICD Code: E78.5 - HYPERLIPIDEMIA, UNSPECIFIED Status: Chronic Current Visit: Yes Qualifiers: Hyperlipidemia type: unspecified Qualified Code(s): E78.5 - Hyperlipidemia, unspecified (9) Obesity SNOMED Code(s): 101995685, 117301904 ICD Code: E66.9 - OBESITY, UNSPECIFIED Status: Chronic Current Visit: Yes Qualifiers: Obesity type: due to excess calories Obesity classification: adult class 1 (BMI 30 - 34.9) Serious obesity comorbidity presence: with serious comorbidity Body mass index: BMI 33.0-33.9 Qualified Code(s): E66.09 - Other obesity due to excess calories; Z68.33 - Body mass index [BMI] 33.0-33.9, adult (10) Vitamin D deficiency SNOMED Code(s): 64612771 ICD Code: E55.9 - VITAMIN D DEFICIENCY, UNSPECIFIED Status: Chronic Current Visit: No (11) Celiac disease SNOMED Code(s): 035673901 ICD Code: K90.0 - CELIAC DISEASE Status: Chronic Current Visit: No - Patient Summary/Data Operative Procedure(s) Performed: none Complications: none Consults: none Labs Pending at D/C: none Recommended Follow-up Testing/Procedures: none Planned Operative Procedure(s) after DC: none Hospital Course: The patient was admitted and started on IV fluids and IV ceftriaxone. The day after admission, she had recurrence of fever with an increase in her lactate and CRP. She was then switched to meropenem. Her blood culture did come back positive for E. coli. Her urine culture also came back showing the same. She has had no further fevers for nearly 48 hours. Her symptoms have progressively improved. She is feeling back to baseline today and feels prepared for discharge home. Her susceptibilities have returned for both her blood and urine cultures. She will be discharged home on cefdinir to complete a 7 day course. Her hospitalization was also complicated by acute kidney injury and her losartan has been held. Her blood pressures have been stable without that and her creatinine is trending down. She was also noted to have anemia, which initially worsened but then stabilized. Her iron studies do show iron deficiency. Labs will be repeated on follow-up to determine what is truly a new issue versus what was related to her acute illness. In light of her renal function, her metformin will also be held until follow-up. She will be discharged home with close follow-up in clinic later this week. - Patient Instructions Diet: Diabetic Diet Activity: As Tolerated Driving: May Drive Today Notify Provider of: Fever, Increased Pain, Nausea and/or Vomiting - Discharge Plan *PRESCRIPTION DRUG MONITORING PROGRAM REVIEWED*: No *COPY OF PRESCRIPTION DRUG MONITORING REPORT IN PATIENT SAMMY: No Prescriptions/Med Rec: Cefdinir 300 mg PO BID #8 capsule Home Medications: Home Meds Aspirin [Halfprin] 81 mg PO DAILY 06/20/17 [History] Cholecalciferol (Vitamin D3) [Vitamin D3] 2,000 unit PO DAILY 06/20/17 [History] Fish Oil/[place]-3 Fatty Acids [Fish Oil 1,000 MG] 1,000 mg PO BID 06/20/17 [History] Insulin Aspart [NovoLOG] 6 unit SQ TIDMEALS 06/20/17 [History] Insulin Glargine,Hum.Rec.Anlog [Lantus Solostar] 55 unit SQ BID 06/20/17 [History] Ketoconazole [Nizoral 2% Shampoo] 1 applic TOP DAILY 06/20/17 [History] Ubidecarenone [Co Q-10] 1 tab PO DAILY 06/20/17 [History] Vitamin B Complex 1 tab PO DAILY 06/20/17 [History] atenoloL [Atenolol] 50 mg PO DAILY 06/20/17 [History] Rosuvastatin [Crestor] 5 mg PO BEDTIME 09/29/19 [History] Semaglutide [Ozempic] 1 mg SQ VINCENT 09/29/19 [History] Acetaminophen 650 mg PO Q4HR PRN 07/04/20 [History] Ergocalciferol (Vitamin D2) [Vitamin D2] 50,000 unit PO MO 07/04/20 [History] Lactobacillus Combination No.4 [Probiotic] 1 each PO DAILY 07/04/20 [History] Triamcinolone Acetonide [Triamcinolone Acetonide 0.5%] 1 applic TOP TID PRN 07/04/20 [History] Cefdinir 300 mg PO BID #8 capsule 07/07/20 [Rx] Referrals: Allyson Mendosa MD [Primary Care Provider] - 07/10/20 9:30 am (You have a follow up appt. with Dr. Nithin Mendosa on July 10, 2020 at 9:30----[facility]) - Discharge Summary/Plan Comment DC Time >30 min.: No - General Info Date of Service: 07/07/20 Subjective Update: Patient is doing well this morning. She denies any dysuria or flank pain. No fever or chills. Appetite is improving; no vomiting for 48 hours. ROS otherwise negative. - Review of Systems General: Reports: No Symptoms HEENT: Reports: No Symptoms Pulmonary: Reports: No Symptoms Cardiovascular: Reports: No Symptoms Gastrointestinal: Reports: No Symptoms Genitourinary: Reports: No Symptoms Musculoskeletal: Reports: No Symptoms Skin: Reports: No Symptoms Neurological: Reports: No Symptoms - Patient Data Vitals - Most Recent: Last Vital Signs Temp 36.8 C 07/07/20 06:00 Pulse 81 07/07/20 08:00 Resp 17 07/07/20 06:00 BP 126/73 07/07/20 08:00 Pulse Ox 95 07/07/20 06:00 Weight - Most Recent: 112.661 kg I&O - Last 24 hours: Intake & Output 07/06/20 07/07/20 07/07/20 22:59 06:59 14:59 Intake Total 850 700 240 Output Total 1200 1000 Balance -350 -300 240 Lab Results - Last 24 hrs: Laboratory Results - last 24 hr 07/06/20 07/06/20 07/06/20 Range/Units 10:55 17:17 21:15 WBC (4.0-10.0) x10^3/uL RBC (4.00-5.50) x10^6/uL Hgb (12.0-16.0) g/dL Hct (33.0-47.0) % MCV (78.0-93.0) fL MCH (26.0-32.0) pg MCHC (32.0-36.0) g/dL RDW Coeff of [place] (10.0-15.0) % Plt Count (130-400) x10^3/uL Neut % (Auto) (50.0-80.0) % Lymph % (Auto) (25.0-50.0) % [place] % (Auto) (2.0-11.0) % Eos % (Auto) (0.0-4.0) % Baso % (Auto) (0.2-1.2) % Sodium (136-145) mmol/L Potassium (3.5-5.1) mmol/L Chloride (98-107) mmol/L Carbon Dioxide (21-32) mmol/L Anion Gap (10-20) mmol/L BUN (7-18) mg/dL Creatinine (0.55-1.02) mg/dL Est Cr Clr Drug Dosing mL/min Estimated GFR (MDRD) Glucose (74-106) mg/dL POC Glucose 187 H 119 H 112 H (74-106) mg/dL Lactic Acid (0.4-2.0) mmol/L Calcium (8.5-10.1) mg/dL Iron (50-170) ug/dL TIBC (250-450) ug/dL % Saturation (20.0-50.0) % Ferritin (8-252) ng/mL C-Reactive Protein (<=0.9) mg/dL 07/07/20 07/07/20 07/07/20 Range/Units 06:09 06:15 06:15 WBC 7.6 (4.0-10.0) x10^3/uL RBC 3.24 L (4.00-5.50) x10^6/uL Hgb 9.9 L (12.0-16.0) g/dL Hct 30.0 L (33.0-47.0) % MCV 92.6 (78.0-93.0) fL MCH 30.6 (26.0-32.0) pg MCHC 33.0 (32.0-36.0) g/dL RDW Coeff of [place] 12.3 (10.0-15.0) % Plt Count 146 (130-400) x10^3/uL Neut % (Auto) 74.8 (50.0-80.0) % Lymph % (Auto) 11.8 L (25.0-50.0) % [place] % (Auto) 10.4 (2.0-11.0) % Eos % (Auto) 2.6 (0.0-4.0) % Baso % (Auto) 0.4 (0.2-1.2) % Sodium 136 (136-145) mmol/L Potassium 4.1 (3.5-5.1) mmol/L Chloride 100 (98-107) mmol/L Carbon Dioxide 32 (21-32) mmol/L Anion Gap 8.1 L (10-20) mmol/L BUN 21 H (7-18) mg/dL Creatinine 1.4 H (0.55-1.02) mg/dL Est Cr Clr Drug Dosing 49.68 mL/min Estimated GFR (MDRD) 39 Glucose 108 H (74-106) mg/dL POC Glucose 102 (74-106) mg/dL Lactic Acid (0.4-2.0) mmol/L Calcium 8.9 (8.5-10.1) mg/dL Iron (50-170) ug/dL TIBC (250-450) ug/dL % Saturation (20.0-50.0) % Ferritin (8-252) ng/mL C-Reactive Protein 8.3 H (<=0.9) mg/dL 07/07/20 07/07/20 Range/Units 06:15 06:15 WBC (4.0-10.0) x10^3/uL RBC (4.00-5.50) x10^6/uL Hgb (12.0-16.0) g/dL Hct (33.0-47.0) % MCV (78.0-93.0) fL MCH (26.0-32.0) pg MCHC (32.0-36.0) g/dL RDW Coeff of [place] (10.0-15.0) % Plt Count (130-400) x10^3/uL Neut % (Auto) (50.0-80.0) % Lymph % (Auto) (25.0-50.0) % [place] % (Auto) (2.0-11.0) % Eos % (Auto) (0.0-4.0) % Baso % (Auto) (0.2-1.2) % Sodium (136-145) mmol/L Potassium (3.5-5.1) mmol/L Chloride (98-107) mmol/L Carbon Dioxide (21-32) mmol/L Anion Gap (10-20) mmol/L BUN (7-18) mg/dL Creatinine (0.55-1.02) mg/dL Est Cr Clr Drug Dosing mL/min Estimated GFR (MDRD) Glucose (74-106) mg/dL POC Glucose (74-106) mg/dL Lactic Acid 1.0 (0.4-2.0) mmol/L Calcium (8.5-10.1) mg/dL Iron 23 L (50-170) ug/dL TIBC 183 L (250-450) ug/dL % Saturation 12.6 L (20.0-50.0) % Ferritin 266 H (8-252) ng/mL C-Reactive Protein (<=0.9) mg/dL CRAIG Results - Last 24 hrs: Microbiology 07/04/20 12:54 Aerobic Blood Culture - Preliminary Blood - Venous NO GROWTH AFTER 2 DAYS Anaerobic Blood Culture - Final Escherichia Coli 07/04/20 12:59 Aerobic Blood Culture - Preliminary Blood - Venous - Lab Draw NO GROWTH AFTER 2 DAYS Anaerobic Blood Culture - Preliminary NO GROWTH AFTER 2 DAYS Med Orders - Current: Current Medications Acetaminophen (Tylenol) 650 mg PO Q4H PRN PRN Reason: Pain (Mild 1-3)/fever Last Admin: 07/06/20 20:19 Dose: 650 mg Documented by: Aspirin (Halfprin) 81 mg PO DAILY [facility] Last Admin: 07/07/20 07:59 Dose: 81 mg Documented by: Atenolol (Tenormin) 50 mg PO DAILY [facility] Last Admin: 07/07/20 08:00 Dose: 50 mg Documented by: Atorvastatin Calcium (Lipitor) 20 mg PO BEDTIME [facility] Last Admin: 07/06/20 20:19 Dose: 20 mg Documented by: Hydrochlorothiazide (Hydrochlorothiazide) 12.5 mg PO DAILY [facility] Last Admin: 07/07/20 07:59 Dose: 12.5 mg Documented by: Meropenem 1 gm/ Sodium (Chloride) 100 mls @ 33 mls/hr IV Q8H [facility] Last Admin: 07/07/20 03:46 Dose: 33 mls/hr Documented by: Insulin Glargine (Lantus) 50 unit SUBCUT BID [facility] Last Admin: 07/07/20 08:04 Dose: 50 units Documented by: Insulin Human Lispro (Humalog) 6 unit SUBCUT TIDMEALS [facility] Last Admin: 07/07/20 08:03 Dose: 6 units Documented by: Insulin Human Lispro (Humalog) 0 unit SUBCUT TIDMEALS [facility]; Protocol Last Admin: 07/07/20 08:06 Dose: Not Given Documented by: Losartan Potassium (Cozaar) 50 mg PO DAILY [facility] Last Admin: 07/05/20 09:14 Dose: Not Given Documented by: Valsartan-Hctz 80-12 (.5 Mg) 1 tab PO DAILY [facility] Ondansetron HCl (Zofran) 4 mg IVPUSH Q8H PRN PRN Reason: Nausea Last Admin: 07/05/20 18:16 Dose: 4 mg Documented by: Pantoprazole Sodium (Protonix) 40 mg PO ACBREAKFAST [facility] Last Admin: 07/07/20 06:14 Dose: 40 mg Documented by: Discontinued Medications Calcium Carbonate/Glycine (Tums Extra Strength) 1,500 mg PO ONETIME ONE Stop: 07/04/20 12:30 Last Admin: 07/04/20 13:50 Dose: 1,500 mg Documented by: Ceftriaxone Sodium (Rocephin) 2 gm IVPUSH STAT ONE Stop: 07/04/20 11:55 Last Admin: 07/04/20 13:10 Dose: 2 gm Documented by: Ceftriaxone Sodium (Rocephin) 2 gm IVPUSH DAILY [facility] Last Admin: 07/05/20 09:15 Dose: 2 gm Documented by: Enoxaparin Sodium (Lovenox) 40 mg SUBCUT DAILY [facility] Last Admin: 07/06/20 08:55 Dose: Not Given Documented by: Lactated Ringer's (Ringers, Lactated) 1,000 mls @ 150 mls/hr IV ASDIRECTED [facility] Stop: 07/05/20 07:00 Sodium Chloride (Normal Saline) 1,000 mls @ 150 mls/hr IV ASDIRECTED [facility] Stop: 07/05/20 07:00 Last Admin: 07/05/20 03:17 Dose: 150 mls/hr Documented by: Sodium Chloride (Normal Saline) 1,000 mls @ 100 mls/hr IV ASDIRECTED [facility] Last Admin: 07/05/20 20:31 Dose: 100 mls/hr Documented by: Meropenem 1 gm/ Sodium (Chloride) 100 mls @ 200 mls/hr IV Q8H [facility] Last Admin: 07/05/20 11:59 Dose: Not Given Documented by: Meropenem 500 mg/ Sodium (Chloride) 100 mls @ 33 mls/hr IV Q8H [facility] Last Admin: 07/06/20 12:16 Dose: Not Given Documented by: - Exam General: Reports: Alert, Cooperative, No Acute Distress HEENT: Reports: Mucous Membr. Moist/[place] Neck: Reports: Supple, Trachea Midline, No Thyromegaly. Denies: Lymphadenopathy Lungs: Reports: Clear to Auscultation, Normal Respiratory Effort Cardiovascular: Reports: Regular Rate, Regular Rhythm, No Murmurs GI/Abdominal Exam: Normal Bowel Sounds, Soft, Non-Tender, No Organomegaly, No Distention, No Mass Extremities: Non-Tender, No Pedal Edema, Normal Capillary Refill Skin: Reports: Warm, Dry, Intact
== END 2020-07-07 10:30 | disposition home or self-care (01) | DRG 872 ==
LOC: VM.MS 12:19
PROVIDERS: ADMIT Family Medicine; ATTEND Family Medicine
DX: A41.51 Sepsis due to Escherichia coli [E. coli] (principal); N12 Tubulo-interstitial nephritis, not specified as acute or chronic; N20.0 Calculus of kidney; N18.31 Chronic kidney disease, stage 3a; I12.9 Hypertensive chronic kidney disease with stage 1 through stage 4 chronic kidney disease, or unspecified chronic kidney disease; E11.21 Type 2 diabetes mellitus with diabetic nephropathy; E66.09 Other obesity due to excess calories; E55.9 Vitamin D deficiency, unspecified; K90.0 Celiac disease; E78.5 Hyperlipidemia, unspecified; E04.1 Nontoxic single thyroid nodule; Z90.710 Acquired absence of both cervix and uterus; Z79.4 Long term (current) use of insulin; Z68.33 Body mass index [BMI] 33.0-33.9, adult; Z79.82 Long term (current) use of aspirin; Z79.899 Other long term (current) drug therapy
CPT/HCPCS: 36415; 74176; 80048; 80053; 82728; 82962; 83540; 83550; 83605; 85025; 86140; 87040; 87077; 87186; A9270-GY; J0696; J1650; J1815-GY; J2185; J2405; J7030; J7050

== ENCOUNTER 2022-04-03 17:52 | Emergency (ER) | payer OTHER ==
[2022-04-03] MEDS ORDERED: Take Home: Cephalexin 500 MG Cap, 4 Cap Pack PO ONE (18:39)
[2022-04-03 20:05] VITALS: BP 115/72; PULSE 100
== END 2022-04-03 18:50 | disposition home or self-care (01) ==
LOC: VM.ED 17:52
DX: T81.9XXA Unspecified complication of procedure, initial encounter (principal); L08.9 Local infection of the skin and subcutaneous tissue, unspecified; I10 Essential (primary) hypertension; E78.00 Pure hypercholesterolemia, unspecified; E11.9 Type 2 diabetes mellitus without complications; E66.9 Obesity, unspecified; Z68.33 Body mass index [BMI] 33.0-33.9, adult; Z79.82 Long term (current) use of aspirin; Z79.4 Long term (current) use of insulin; Z79.899 Other long term (current) drug therapy
CPT/HCPCS: 87070; 87077; 99283; A9270; 99284